=== PATIENT | female | born 1950 | race African-American/Black ===

== ENCOUNTER 2023-01-06 13:12 | Emergency (ER) | payer MEDICARE, OTHER ==
[~2023-01-06] VITALS: Ht 154.9 cm; Wt 68.2 kg
[~2023-01-06 13:12] MED LIST: ATEN100T92 PO
[2023-01-06] MEDS ORDERED: HYDROCODONE/ACETAMINOPHEN 5-325 MG TABLET PO ONE (15:45)
[2023-01-06] MEDS ORDERED: AMOXICILLIN TRIHYDRATE 250 MG CAPSULE PO ONE (19:00)
[2023-01-06 19:18] VITALS: BP 175/109
[2023-01-06] MEDS ORDERED: AMOX250C4 PO (19:18)
== END 2023-01-06 20:00 | disposition home or self-care (01) ==
LOC: EMS 13:13
DX: K02.9 Dental caries, unspecified (principal); I10 Essential (primary) hypertension; G20 Parkinson's disease; Z90.710 Acquired absence of both cervix and uterus
CPT/HCPCS: 99283

== ENCOUNTER 2024-06-01 11:03 | Emergency (ER) | payer MEDICARE, MEDICAID ==
[~2024-06-01] VITALS: Ht 154.9 cm; Wt 75.0 kg
[~2024-06-01 11:03] MED LIST changes: +AMOX250C4 PO
[2024-06-01 11:07] VITALS: TEMP 97.9
[2024-06-01] MEDS ORDERED: ATOR40TA71 PO (11:08)
[2024-06-01] MEDS ORDERED: AMLO10TA55 PO (11:08)
[2024-06-01] MEDS ORDERED: FAMO20TA8 PO (11:08)
[2024-06-01] MEDS ORDERED: CARV6.2534 PO (11:08)
[2024-06-01] MEDS ORDERED: CARB1TAB35 PO (11:08)
[2024-06-01] MEDS ORDERED: FLUO40CA PO (11:08)
[2024-06-01] MEDS ORDERED: ALBU18HF12 IH (11:08)
[2024-06-01] MEDS: KETOROLAC TROMETHAMINE 60 MG/2 ML VIAL IM ONE (11:30)
[2024-06-01 13:00] VITALS: BP 134/82; PULSE 77; RESP 18; O2SAT 96
[2024-06-01] MEDS: OxyCODONE HCL/ACETAMINOPHEN 5-325 MG TABLET PO ONE (13:26)
[2024-06-01] MEDS ORDERED: IBUP-1492 PO (13:29)
[2024-06-01] MEDS ORDERED: PERCT PO (13:30)
== END 2024-06-01 14:46 | disposition home or self-care (01) ==
LOC: EMS 11:06
DX: R07.89 Other chest pain (principal); I10 Essential (primary) hypertension; G20.A1 Parkinson's disease without dyskinesia, without mention of fluctuations; Z90.710 Acquired absence of both cervix and uterus
CPT/HCPCS: 99283; 71046; 96372; J1885

== ENCOUNTER 2024-06-03 13:16 | Emergency (ER) | payer MEDICARE, MEDICAID ==
[~2024-06-03] VITALS: Ht 157.5 cm; Wt 65.9 kg
[~2024-06-03 13:16] MED LIST changes: +ALBU18HF12 IH; +AMLO10TA55 PO; +ATOR40TA71 PO; +CARB1TAB35 PO; +CARV6.2534 PO; +FAMO20TA8 PO; +FLUO40CA PO; +IBUP-1492 PO; +PERCT PO
[2024-06-03] MEDS: TraMADol HCL 50 MG TABLET PO ONE (16:10)
[2024-06-03 17:49] LABS: BASOPHILS % (AUTO) 1.1 % (0.0-2.0); EOSINOPHILS % (AUTO) 3.7 % (1.0-6.0); HEMATOCRIT 35.6 % (36-46); HEMOGLOBIN 12.1 g/dL (12.0-16.0); LYMPHOCYTES # (AUTO) 2.9 K/uL (1.0-4.8); MEAN CORPUSCULAR HEMOGLOBIN 31.7 pg (26.0-34.0); MEAN CORPUSCULAR VOLUME 93 fL (80-100); MONOCYTES # (AUTO) 0.6 K/uL (0.1-1.0); MONOCYTES % (AUTO) 5.9 % (2.0-9.0); NEUTROPHILS % (AUTO) 60.3 % (40.0-70.0); PLATELET COUNT (AUTO) 267 K/uL (150-450); RED BLOOD CELL COUNT(AUTO) 3.82 MIL/uL (4.00-5.20); RED CELL DISTRIBUTION WIDTH 13.6 % (11.5-14.5); WHITE BLOOD COUNT (AUTO) 9.9 K/uL (4.5-11.0)
[2024-06-03 17:58] LABS: ANION GAP 9 mmol/L (8-16); CARBON DIOXIDE 26 mmol/L (22-29); CHLORIDE 103 mmol/L (98-107); CREATININE 0.95 mg/dL (0.60-1.30); GLOMERULAR FILTR. RATE CALC > 60 mL/min (>60); GLUCOSE,RANDOM 95 mg/dL (70-110); POTASSIUM 3.7 mmol/L (3.5-5.1); SODIUM SERUM 138 mmol/L (136-145); UREA NITROGEN, BLOOD 16 mg/dL (7-18)
[2024-06-03 18:06] LABS: TROPONIN I-HIGH SENSITIVITY 5 ng/L (<51)
[2024-06-03 18:51] LABS: ALBUMIN 3.8 g/dL (3.4-5.0); ALKALINE PHOSPHATASE 91 U/L (46-116); ASPARTATE AMINOTRANSFERASE 23 U/L (15-37); BILIRUBIN,TOTAL 0.6 mg/dL (0.1-1.0); TOTAL PROTEIN, SERUM 8.1 g/dL (6.4-8.2)
[2024-06-03 19:03] LABS: ALANINE AMINOTRANSFERASE 8 U/L (12-78)
[2024-06-03] MEDS ORDERED: FAMO20 PO (19:11)
[2024-06-03] MEDS ORDERED: TRAM50TA5 PO (19:20)
[2024-06-03 19:33] VITALS: BP 127/69; PULSE 67; RESP 16; TEMP 97.3; O2SAT 99
== END 2024-06-03 19:36 | disposition home or self-care (01) ==
LOC: EMS 13:16
DX: S20.219A Contusion of unspecified front wall of thorax, initial encounter (principal); K82.8 Other specified diseases of gallbladder; I10 Essential (primary) hypertension; R07.89 Other chest pain; Z90.710 Acquired absence of both cervix and uterus; Z79.899 Other long term (current) drug therapy; W22.8XXA Striking against or struck by other objects, initial encounter; Y93.89 Activity, other specified; Y92.89 Other specified places as the place of occurrence of the external cause; Y99.8 Other external cause status
CPT/HCPCS: 71250; 76705; 80048; 80076; 84484; 85025; 99284

== ENCOUNTER 2024-08-31 17:42 | Inpatient (IN) | payer MEDICARE, MEDICAID ==
[~2024-08-31] VITALS: Ht 157.5 cm; Wt 75.0 kg
[~2024-08-31 17:42] MED LIST changes: -AMOX250C4 PO; -ATEN100T92 PO; +FAMO20 PO; +TRAM50TA5 PO
[2024-08-31 17:50] LABS: COVID AG,FIA SOURCE NASAL SWAB
[2024-08-31 18:09] LABS: SARS-COV2 (COVID) ANTIGEN,FIA Negative (Negative)
[2024-08-31 18:10] LABS: INFLUENZA TYPE A NEGATIVE FOR TYPE A (NEGATIVE); INFLUENZA TYPE B NEGATIVE FOR TYPE B (NEGATIVE)
[2024-08-31 18:57] LABS: BASOPHILS % (AUTO) 0.7 % (0.0-2.0); EOSINOPHILS % (AUTO) 3.9 % (1.0-6.0); HEMATOCRIT 39.1 % (36-46); LYMPHOCYTES # (AUTO) 2.9 K/uL (1.0-4.8); LYMPHOCYTES % (AUTO) 29.4 % (22.0-44.0); MEAN CORPUSCULAR HEMOGLOBIN 30.7 pg (26.0-34.0); MEAN CORPUSCULAR HGB CONC 33.2 G/dL (31.0-37.0); MEAN CORPUSCULAR VOLUME 92 fL (80-100); MONOCYTES # (AUTO) 0.5 K/uL (0.1-1.0); MONOCYTES % (AUTO) 5.3 % (2.0-9.0); NEUTROPHILS # (AUTO) 5.9 K/uL (1.8-7.7); NEUTROPHILS % (AUTO) 60.7 % (40.0-70.0); PLATELET COUNT (AUTO) 268 K/uL (150-450); RED BLOOD CELL COUNT(AUTO) 4.24 MIL/uL (4.00-5.20); RED CELL DISTRIBUTION WIDTH 13.7 % (11.5-14.5); WHITE BLOOD COUNT (AUTO) 9.7 K/uL (4.5-11.0)
[2024-08-31 19:02] LABS: ANION GAP 10 mmol/L (8-16); CALCIUM, TOTAL 9.3 mg/dL (8.8-10.5); CARBON DIOXIDE 30 mmol/L (22-29); CHLORIDE 105 mmol/L (98-107); CREATININE 1.01 mg/dL (0.60-1.30); GLOMERULAR FILTR. RATE CALC > 60 mL/min (>60); GLUCOSE,RANDOM 86 mg/dL (70-110); POTASSIUM 3.8 mmol/L (3.5-5.1); SODIUM SERUM 145 mmol/L (136-145); UREA NITROGEN, BLOOD 16 mg/dL (7-18)
[2024-08-31] MEDS: IPRATROPIUM BROMIDE 0.5 MG/2.5 ML NEB SOLUTION NEB ONE (19:07)
[2024-08-31] MEDS: ALBUTEROL SULFATE 2.5 MG/0.5 ML NEB SOLUTION NEB ONE (19:07)
[2024-08-31 19:10] VITALS: PULSE 69; RESP 18; O2SAT 97
[2024-08-31 19:11] LABS: TROPONIN I-HIGH SENSITIVITY 7 ng/L (<51)
[2024-08-31 19:15] LABS: B-TYPE NATRIURETIC PEPTIDE 75 pg/mL (0-100)
[2024-08-31 19:25] VITALS: PULSE 75; RESP 18; O2SAT 100
[2024-08-31] MEDS ORDERED: ALBUTEROL SULFATE 2.5 MG/0.5 ML NEB SOLUTION NEB PRN (20:45)
[2024-08-31] MEDS ORDERED: HydrALAZINE HCL 20 MG/ML VIAL IVP PRN (20:45)
[2024-08-31] MEDS ORDERED: IPRATROPIUM BROMIDE 0.5 MG/2.5 ML NEB SOLUTION NEB PRN (20:45)
[2024-08-31] MEDS ORDERED: ONDANSETRON HCL 4 MG/2 ML VIAL IVP PRN (20:45)
[2024-08-31] MEDS: CARVEDILOL 6.25 MG TABLET PO SCH (21:21)
[2024-08-31] MEDS: DOXYCYCLINE HYCLATE 100 MG TABLET PO SCH (21:21)
[2024-08-31] MEDS: DOCUSATE SODIUM 100 MG CAPSULE PO SCH (21:22)
[2024-08-31] MEDS: ATORVASTATIN CALCIUM 40 MG TABLET PO SCH (21:22)
[2024-08-31] MEDS ORDERED: IOHEXOL 350 MG/ML 100 ML VIAL ONE (21:24)
[2024-08-31] MEDS ORDERED: SODIUM CHLORIDE 0.9% 100 ML ONE (21:24)
[2024-08-31] MEDS: CefTRIAXone 1 GM/DEXTROSE 50 ML IV SCH (21:24)
[2024-08-31] MEDS ORDERED: 0.9% SODIUM CHLORIDE 10 ML SYRINGE IVP ONE (21:24)
[2024-08-31 22:13] VITALS: BP 136/84; PULSE 78; RESP 20; TEMP 98.4; O2SAT 97
[2024-08-31] MEDS: CARBIDOPA/LEVODOPA 25-100 MG TABLET PO SCH (23:17)
[2024-08-31] MEDS: HEPARIN SODIUM,PORCINE 5,000 UNITS/ML VIAL SQ SCH (23:18)
[2024-09-01 04:46] VITALS: BP 140/71; PULSE 67; RESP 19; TEMP 98.4; O2SAT 100
[2024-09-01 07:14] VITALS: BP 132/70; PULSE 72; RESP 18; TEMP 98; O2SAT 98
[2024-09-01 08:01] LABS: ANION GAP 9 mmol/L (8-16); CALCIUM, TOTAL 8.7 mg/dL (8.8-10.5); CARBON DIOXIDE 28 mmol/L (22-29); CHLORIDE 107 mmol/L (98-107); CREATININE 0.91 mg/dL (0.60-1.30); GLOMERULAR FILTR. RATE CALC > 60 mL/min (>60); GLUCOSE,RANDOM 87 mg/dL (70-110); POTASSIUM 3.3 mmol/L (3.5-5.1); SODIUM SERUM 144 mmol/L (136-145); UREA NITROGEN, BLOOD 12 mg/dL (7-18)
[2024-09-01 08:15] LABS: BASOPHILS % (AUTO) 0.7 % (0.0-2.0); EOSINOPHILS % (AUTO) 3.6 % (1.0-6.0); HEMATOCRIT 35.1 % (36-46); HEMOGLOBIN 11.7 g/dL (12.0-16.0); LYMPHOCYTES # (AUTO) 2.2 K/uL (1.0-4.8); LYMPHOCYTES % (AUTO) 24.8 % (22.0-44.0); MEAN CORPUSCULAR HEMOGLOBIN 30.6 pg (26.0-34.0); MEAN CORPUSCULAR HGB CONC 33.3 G/dL (31.0-37.0); MEAN CORPUSCULAR VOLUME 92 fL (80-100); MONOCYTES # (AUTO) 0.6 K/uL (0.1-1.0); MONOCYTES % (AUTO) 6.3 % (2.0-9.0); NEUTROPHILS # (AUTO) 5.7 K/uL (1.8-7.7); NEUTROPHILS % (AUTO) 64.6 % (40.0-70.0); PLATELET COUNT (AUTO) 234 K/uL (150-450); RED BLOOD CELL COUNT(AUTO) 3.82 MIL/uL (4.00-5.20); RED CELL DISTRIBUTION WIDTH 13.7 % (11.5-14.5); WHITE BLOOD COUNT (AUTO) 8.8 K/uL (4.5-11.0)
[2024-09-01] MEDS: AmLODIPine BESYLATE 10 MG TABLET PO SCH (08:29)
[2024-09-01 12:00] VITALS: BP 127/69; PULSE 80; RESP 18; TEMP 97.8; O2SAT 99
[2024-09-01 16:00] VITALS: BP 124/72; PULSE 66; RESP 16; TEMP 98.3; O2SAT 100
[2024-09-01] MEDS ORDERED: POTASSIUM CHL 10 MEQ/WATER 50 ML IV PRN (18:30)
[2024-09-01] MEDS: POTASSIUM CHLORIDE 20 MEQ ER TABLET PO PRN (18:37)
[2024-09-01 20:46] VITALS: BP 140/73; PULSE 71; RESP 18; TEMP 98; O2SAT 100
[2024-09-02] VITALS (7 sets, daily range): BP systolic 102–145; BP diastolic 61–90; PULSE 59–86; RESP 18–20; TEMP 97.9–98.6; O2SAT 91–100
[2024-09-02 07:38] LABS: BASOPHILS % (AUTO) 0.8 % (0.0-2.0); EOSINOPHILS % (AUTO) 4.1 % (1.0-6.0); HEMATOCRIT 36.1 % (36-46); LYMPHOCYTES # (AUTO) 2.1 K/uL (1.0-4.8); LYMPHOCYTES % (AUTO) 25.3 % (22.0-44.0); MEAN CORPUSCULAR HEMOGLOBIN 30.4 pg (26.0-34.0); MEAN CORPUSCULAR HGB CONC 33.1 G/dL (31.0-37.0); MEAN CORPUSCULAR VOLUME 92 fL (80-100); MONOCYTES # (AUTO) 0.6 K/uL (0.1-1.0); MONOCYTES % (AUTO) 7.3 % (2.0-9.0); NEUTROPHILS # (AUTO) 5.2 K/uL (1.8-7.7); NEUTROPHILS % (AUTO) 62.5 % (40.0-70.0); PLATELET COUNT (AUTO) 229 K/uL (150-450); RED BLOOD CELL COUNT(AUTO) 3.93 MIL/uL (4.00-5.20); RED CELL DISTRIBUTION WIDTH 13.8 % (11.5-14.5); WHITE BLOOD COUNT (AUTO) 8.4 K/uL (4.5-11.0)
[2024-09-02 07:51] LABS: ANION GAP 6 mmol/L (8-16); CARBON DIOXIDE 30 mmol/L (22-29); CHLORIDE 106 mmol/L (98-107); CREATININE 0.87 mg/dL (0.60-1.30); GLOMERULAR FILTR. RATE CALC > 60 mL/min (>60); GLUCOSE,RANDOM 89 mg/dL (70-110); POTASSIUM 4.1 mmol/L (3.5-5.1); SODIUM SERUM 142 mmol/L (136-145); UREA NITROGEN, BLOOD 13 mg/dL (7-18)
[2024-09-02] MEDS: ACETAMINOPHEN 325 MG TABLET PO PRN (09:37)
[2024-09-02 12:31] LABS: GLUCOMETER DEV NAME(LOC) 5S.2D; GLUCOSE,POINT OF CARE 117 MG/DL (70-110)
[2024-09-02] MEDS ORDERED: SODIUM CHLORIDE 0.9% 0 ML IV ONE (14:15)
[2024-09-02] MEDS: PIPERACILLIN/TAZO 3.375 GM/D5W 50 ML IV SCH (14:31)
[2024-09-03 03:30] VITALS: BP 141/74; PULSE 68; RESP 19; TEMP 98.6; O2SAT 99
[2024-09-03 07:59] VITALS: BP 149/91; PULSE 83; RESP 18; TEMP 98.3
[2024-09-03] MEDS: FUROSEMIDE 20 MG/2 ML VIAL IVP SCH (08:03)
[2024-09-03] MEDS: MAGNESIUM HYDROXIDE SUSPENSION 30 ML UDCUP PO ONE (11:28)
[2024-09-03] MEDS: SENNOSIDES 8.6 MG TABLET PO ONE (11:28)
[2024-09-03] MEDS: POLYETHYLENE GLYCOL 3350 17 GM PACKET PO SCH (11:28)
[2024-09-03 12:18] VITALS: BP 132/84; PULSE 78; RESP 16; TEMP 98.9; O2SAT 98
[2024-09-03 14:00] VITALS: BP 110/75; PULSE 84; RESP 18; TEMP 98.8; O2SAT 100
[2024-09-03 19:33] VITALS: BP 116/78; PULSE 93; RESP 18; TEMP 98.5; O2SAT 99
[2024-09-03] MEDS ORDERED: SODIUM CHLORIDE 0.9% 500 ML IV ONE (21:06)
[2024-09-04 04:44] VITALS: BP 109/79; PULSE 74; RESP 18; TEMP 98.6; O2SAT 97
[2024-09-04 08:36] VITALS: BP 119/77; PULSE 88; RESP 18; TEMP 98.3; O2SAT 98
[2024-09-04] MEDS ORDERED: CLOT15CR29 TP (12:12)
[2024-09-04] MEDS ORDERED: AMOX-457 PO (12:12)
[2024-09-04 15:47] VITALS: BP 130/86; PULSE 77; RESP 18; TEMP 97.4; O2SAT 100
== END 2024-09-04 19:00 | disposition home health service (06) | DRG 177 ==
LOC: EMS 17:42 → EDH 20:38 → 5N 21:48 → 6S 09-03 14:00
PROVIDERS: ADMIT Internal Medicine; ATTEND Internal Medicine
DX: J69.0 Pneumonitis due to inhalation of food and vomit (principal); J96.01 Acute respiratory failure with hypoxia; I69.354 Hemiplegia and hemiparesis following cerebral infarction affecting left non-dominant side; G20.A1 Parkinson's disease without dyskinesia, without mention of fluctuations; Z20.822 Contact with and (suspected) exposure to COVID-19; R91.1 Solitary pulmonary nodule; I12.9 Hypertensive chronic kidney disease with stage 1 through stage 4 chronic kidney disease, or unspecified chronic kidney disease; N18.30 Chronic kidney disease, stage 3 unspecified; R13.10 Dysphagia, unspecified; Z90.710 Acquired absence of both cervix and uterus
CPT/HCPCS: 71045; 71275; 80048; 82962; 83735; 83880; 84132; 84145; 84484; 85025; 87804; 92610; 93005; 93306; 94640; 96365; 97116; 97163; 97167; 97530; 97535; 99285; J0696; J1644; J1940; J2543; J7040; J7050; 36415-L1; 36415-TC; J7613

== ENCOUNTER 2024-09-25 08:06 | Emergency (ER) | payer MEDICARE, MEDICAID ==
[~2024-09-25] VITALS: Ht 154.9 cm; Wt 68.2 kg
[~2024-09-25 08:06] MED LIST changes: +AMOX-457 PO; +CLOT15CR29 TP; -FAMO20TA8 PO
[2024-09-25 08:21] VITALS: TEMP 98
[2024-09-25 11:07] VITALS: BP 183/97; PULSE 73; RESP 18; O2SAT 99
[2024-09-25] MEDS: KETOROLAC TROMETHAMINE 30 MG/ML VIAL IM ONE (12:24)
== END 2024-09-25 12:36 | disposition home or self-care (01) ==
LOC: EMS 08:06
DX: M24.412 Recurrent dislocation, left shoulder (principal); I10 Essential (primary) hypertension; G20.A1 Parkinson's disease without dyskinesia, without mention of fluctuations; M75.102 Unspecified rotator cuff tear or rupture of left shoulder, not specified as traumatic; Z79.899 Other long term (current) drug therapy; Z86.73 Personal history of transient ischemic attack (TIA), and cerebral infarction without residual deficits; Z90.710 Acquired absence of both cervix and uterus
CPT/HCPCS: 99284; 73030 ×2; 73630; 96372; J1885

== ENCOUNTER 2024-12-17 10:27 | Emergency (ER) | payer MEDICARE, MEDICAID ==
[~2024-12-17] VITALS: Ht 157.5 cm; Wt 70.5 kg
[~2024-12-17 10:27] MED LIST changes: -AMOX-457 PO; -PERCT PO; -TRAM50TA5 PO
[2024-12-17 10:31] VITALS: TEMP 98.2
[2024-12-17 12:59] VITALS: BP 151/73; PULSE 90; RESP 18; O2SAT 98
[2024-12-17] MEDS: KETOROLAC TROMETHAMINE 30 MG/ML VIAL IM ONE (13:35)
[2024-12-17] MEDS: ACETAMINOPHEN 500 MG TABLET PO ONE (13:35)
[2024-12-17] MEDS: LIDOCAINE 5% TRANSDERMAL PATCH TD ONE ×2 (13:35→14:00)
[2024-12-17] MEDS: methocarbamoL 500 MG TABLET PO ONE (13:35)
[2024-12-17] MEDS ORDERED: LIDO-57 TP (14:01)
[2024-12-17] MEDS ORDERED: METH-659 PO (14:01)
== END 2024-12-17 15:14 | disposition home or self-care (01) ==
LOC: EMS 10:28
DX: M54.50 Low back pain, unspecified (principal); I10 Essential (primary) hypertension; Z86.73 Personal history of transient ischemic attack (TIA), and cerebral infarction without residual deficits; Z90.710 Acquired absence of both cervix and uterus; Z79.899 Other long term (current) drug therapy
CPT/HCPCS: 99284; 96372; J1885

== ENCOUNTER 2025-01-13 09:34 | Emergency (ER) | payer MEDICARE, MEDICAID ==
[~2025-01-13] VITALS: Ht 157.5 cm; Wt 70.0 kg
[~2025-01-13 09:34] MED LIST changes: +LIDO-57 TP; +METH-659 PO
[2025-01-13 09:38] VITALS: BP 149/66; PULSE 65; RESP 16; TEMP 98.1; O2SAT 97
[2025-01-13 10:47] LABS: COVID AG,FIA SOURCE NASAL SWAB
[2025-01-13 11:51] LABS: INFLUENZA TYPE A NEGATIVE FOR TYPE A (NEGATIVE); INFLUENZA TYPE B NEGATIVE FOR TYPE B (NEGATIVE); SARS-COV2 (COVID) ANTIGEN,FIA Negative (Negative)
== END 2025-01-13 13:43 | disposition home or self-care (01) ==
LOC: EMS 09:37
DX: J02.9 Acute pharyngitis, unspecified (principal); I10 Essential (primary) hypertension; K08.89 Other specified disorders of teeth and supporting structures; G20.A1 Parkinson's disease without dyskinesia, without mention of fluctuations; Z90.710 Acquired absence of both cervix and uterus; Z86.73 Personal history of transient ischemic attack (TIA), and cerebral infarction without residual deficits; Z79.899 Other long term (current) drug therapy
CPT/HCPCS: 87804; 99283

== ENCOUNTER 2025-04-09 14:21 | Emergency (ER) | payer MEDICARE, MEDICAID ==
[~2025-04-09] VITALS: Ht 162.6 cm; Wt 70.0 kg
[2025-04-09 15:06] VITALS: TEMP 98.1
[2025-04-09] MEDS ORDERED: DOXE6TAB4 PO (17:35)
[2025-04-09] MEDS ORDERED: TRIA15CR49 TP (17:35)
[2025-04-09] MEDS ORDERED: FAMO20 PO (17:35)
[2025-04-09] MEDS ORDERED: CARV12.530 PO (17:35)
[2025-04-09] MEDS ORDERED: ASPI-1444 PO (17:35)
[2025-04-09] MEDS ORDERED: CARB1TAB38 PO (17:35)
[2025-04-09] MEDS ORDERED: OLME40TA18 PO (17:35)
[2025-04-09] MEDS: OxyCODONE HCL/ACETAMINOPHEN 5-325 MG TABLET PO ONE (17:53)
[2025-04-09 19:30] VITALS: BP 135/88; PULSE 66; RESP 18; O2SAT 100
== END 2025-04-09 20:06 | disposition home or self-care (01) ==
LOC: EMS 14:21
DX: S52.532A Colles' fracture of left radius, initial encounter for closed fracture (principal); S52.612A Displaced fracture of left ulna styloid process, initial encounter for closed fracture; I10 Essential (primary) hypertension; M24.412 Recurrent dislocation, left shoulder; Z90.710 Acquired absence of both cervix and uterus; Z79.82 Long term (current) use of aspirin; Z79.899 Other long term (current) drug therapy; Z86.73 Personal history of transient ischemic attack (TIA), and cerebral infarction without residual deficits; W05.0XXA Fall from non-moving wheelchair, initial encounter; Y93.89 Activity, other specified; Y92.89 Other specified places as the place of occurrence of the external cause; Y99.8 Other external cause status
CPT/HCPCS: 99283